=== PATIENT | female | born 1950 | race Caucasian/White ===

== ENCOUNTER → 2023-12-03 12:58 | Outpatient (REF) | payer MEDICARE, OTHER, SELFPAY | LOC: RAD 12:58 | PROVIDERS: ATTENDING PHYSICIAN Surgery; FAMILY PHYSICIAN Internal Medicine | DX: K57.20 Diverticulitis of large intestine with perforation and abscess without bleeding (principal) | CPT/HCPCS: 74176 ==

== ENCOUNTER → 2023-12-14 06:23 | Day surgery (SDC) | payer MEDICARE, OTHER, SELFPAY | LOC: GI 06:23 | PROVIDERS: ATTENDING PHYSICIAN Surgery; FAMILY PHYSICIAN Internal Medicine | DX: N82.3 Fistula of vagina to large intestine (principal); Z01.818 Encounter for other preprocedural examination; K64.4 Residual hemorrhoidal skin tags; K57.30 Diverticulosis of large intestine without perforation or abscess without bleeding; K56.699 Other intestinal obstruction unspecified as to partial versus complete obstruction | CPT/HCPCS: 45330 ==

== ENCOUNTER 2024-02-02 06:03 | Inpatient (IN) | payer MEDICARE, OTHER, SELFPAY ==
[2024-01-20 08:58] LABS: Hematocrit 43.1 % (37.0-47.0); Hemoglobin 14.8 g/dL (12.0-16.0); Mean Corp Hgb Conc. 34.3 g/dL (33.0-37.0); Mean Corpuscular Hgb 30.4 pg (27.0-31.0); Mean Corpuscular Volume 88.5 fL (81.0-99.0); Mean Platelet Volume 10.7 fL (7.4-10.4); Platelet Count 256 10^3/uL (130-400); Red Blood Cell Count 4.87 10^6/uL (4.20-5.40); Red Cell Dist. Width 14.2 % (11.5-14.5)
[2024-01-20 09:07] LABS: INR 0.98
[2024-01-20 09:08] LABS: APTT 29.6 Sec (23.4-35.0)
[2024-01-20 09:10] LABS: ALT (SGPT) 47 U/L (0-35); AST (SGOT) 35 U/L (14-36); Albumin 4.2 g/dl (3.5-5.0); Alkaline Phosphatase 59 U/L (38-126); Blood Urea Nitrogen 17 mg/dl (7-17); Calcium 9.1 mg/dl (8.4-10.2); Carbon Dioxide 27 mmol/L (22-30); Chloride 104 mmol/L (98-107); Glucose 90 mg/dl (70-99); Potassium 4.2 mmol/L (3.5-5.1); Sodium 136 mmol/L (135-145); Total Bilirubin 0.4 mg/dl (0.2-1.3); Total Protein 6.7 g/dl (6.3-8.2); eGFR > 60.00
[2024-01-20 09:49] LABS: Glycohemoglobin (HgbA1c) 6.1 % (4.0-5.6)
[2024-01-20 13:55] VITALS: BMI 22.6
[2024-02-02] VITALS (21 sets, daily range): BP systolic 20–133; BP diastolic 53–72; BMI 22.6
[2024-02-02] MEDS: NORMOSOL-R 1000 IV ×2 (06:30→16:35)
[2024-02-02] MEDS: ENTEREG 12 MG PO (06:34)
[2024-02-02] MEDS: HEPARIN 5000 UNITS SC (06:34)
[2024-02-02] MEDS: TYLENOL 1000 MG PO ×2 (06:34→20:37)
[2024-02-02] MEDS: LYRICA 150 MG PO (06:54)
--- NOTE | 2024-02-02 15:36 | W.IMMPOSTOP ---
Addendum entered and electronically signed by Connor Vaz MD 02/02/24 16:04:
updated spouse and sister regarding operative findings and status
Original Note:
Surgical Immed Post Op Note
-
Primary Surgeon: Connor Vaz MD
Assisting Surgeon: Mook Aponte MD, Esteban Laguerre MD, GABRIELLA Gupta
Pre-op Diagnosis: Diverticulitis, sigmoid stricture, possible colovesical fistula, possible colovaginal fistula
Post-op Diagnosis: Diverticulitis, sigmoid stricture, colovaginal fistula
Procedure Performed: Robotic sigmoidectomy, appendectomy, lysis of adhesions greater than 1 hr; takedown of colovaginal fistula, flexible sigmoidoscopy, mesenteric angiography with ICG, laparoscopic TAP block; cystoscopy with bilateral ureteral
stent placement by Dr. Laguerre; repair of colovaginal fistula by Dr. Aponte
Anesthesia Type: General
Specimen / Cultures: Appendix, sigmoid, colovaginal fistula tract
Estimated Blood Loss: 100 mL
Complications: None
Operative Findings: Dr. 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
cannulate both orifices of the left ureter; I gained access via a Veress needle at Mcclain's point; the abdomen was inspected and the bladder was very distended; the Weber catheter was manipulated and the bladder completely decompressed; the
remainder of the ports were placed under direct visualization; performed a Pfannenstiel cutdown 4 cm in length; confirmed location by finder needle and avoided the bladder; appendix was adherent to loop of sigmoid and performed an appendectomy to
free it up and allow the cecum to retract out of the pelvis; lysed adhesions from the sigmoid to the right pelvic sidewall and pelvis; identified a fistula to the matted sigmoid; it was difficult to ascertain if it was to the bladder or vagina;
performed vaginoscopy with the flexible sigmoidoscopy, no leak noted on filling the pelvis with saline; d/w with Dr. Laguerre and backfilled the bladder to distention, no leak of saline noted; after sigmoid was completely mobilized (ureters easily
identified on firefly and protected) transected distal to the rectosigmoid with 60mm robotic stapler with green load; d/w Dr. Aponte who performed vaginal exam and identifed vaginal fistula; he transected the fistula robotically and closed the
vaginal defect in 1 layer; I ligated the MADAI 5cm from it's take off and serially ligated mesentry to point just proximal to inflamed sigmoid; injected ICG and transected at point with clear perfusion; Luz Elena Salamanca handled the EEA stapler and we
performed an intracorporeal stapled EEA anastomosis; donuts intact, leak test negative, anastomosis intact on flex sigmoidoscopy; placed a souleymane drain via right lateral port site; performed laparoscopic TAP block; closed in the usual fashion
[2024-02-02 16:17] LABS: Glucose - Point of Care 148 mg/dl (70-99)
[2024-02-02] MEDS: TORADOL 15 MG IV (16:50)
--- NOTE | 2024-02-02 17:47 | OR.RPT ---
Operative Report
Operative Report
DATE OF OPERATION: 02/02/2024
SURGEON: Connor Vaz MD
PREOPERATIVE DIAGNOSIS: Chronic diverticulitis, sigmoid colon stricture, possible colovesical fistula, possible colovaginal fistula
POSTOPERATIVE DIAGNOSIS: Chronic diverticulitis, sigmoid colon stricture, colovaginal fistula
OPERATION: Robotic sigmoidectomy, appendectomy, lysis of adhesions greater than 1 hour, takedown of colovaginal fistula, flexible sigmoidoscopy, mesenteric angiography with ICG, laparoscopic TAP block; cystoscopy with bilateral ureteral stent
placement by Dr. Laguerre; repair of colovaginal fistula by Dr. Aponte
ASSISTANTS:
1. Mook Aponte MD
2. Esteban Laguerre MD
3. GABRIELLA Gupta
ANESTHESIA: General
ESTIMATED BLOOD LOSS: 100 mL
IVF: 4.1L
URINE OUTPUT: 500 mL
FINDINGS:
1. Densely adherent appendix to matted loops of sigmoid colon; performed appendectomy
2. Matted loops of sigmoid densely adherent to the pelvis, vagina and bladder; identified a fistula from the sigmoid colon to the vaginal cuff; I divided the fistula and Dr. Aponte performed a transection of the vaginal cuff including the vaginal
fistula and closed primarily
3. The bladder was fully distended after complete mobilization of the rectosigmoid, no bladder leak was identified
4. Performed sigmoidectomy with stapled EEA anastomosis, about 10cm from the anal verge; donuts intact x 2, negative leak test, anastomosis intact on flexible sigmoidoscopy
SPECIMENS:
1. Appendix
2. Colovaginal fistula tract
3. Sigmoid colon
DRAINS: 19 Polish placed through right lateral port into the pelvis anterior to the colorectal anastomosis and posterior to the fistula repair
COMPLICATIONS: None
INDICATIONS: The patient is a 73-year-old female who was referred to me by Dr. Tim for concern of colovaginal fistula. Initially, she presented to [facility] ED with abdominal pain and was found to have a pelvic abscess associated with
perforated diverticulitis. She was treated nonoperatively and followed with repeat CT scans. However, on one of her repeat scans, there was evidence of a fistula to the vagina as well as concern for colovesical fistula. She was seen
preoperatively by Dr. Aponte, who found a dimpling in the proximal vagina but no obvious fistula. I performed a flexible sigmoidoscopy and did not identify any fistula to the rectum. She had a known sigmoid stricture and the pediatric colonoscope
was not able to transverse the sigmoid colon. Due to the constellation of these issues causing significant symptoms, I recommended surgery. The operation was discussed with the patient and spouse in detail, including the risks, benefits and
alternatives. Risks described included, but not limited to, bleeding, infection, anastomotic leak, damage to nearby structures (i.e.- ureter, bowel, solid organs), incisional hernia, need for ostomy creation, conversion to open, recurrence of
diverticulitis, inability to identify or takedown fistulas and anesthetic risks. The patient understood. Due to the related bowel function associated with a low colorectal anastomosis, she made it clear that she would prefer a persistent
rectovaginal fistula as opposed to a low colorectal anastomosis, if in fact the fistula to the vagina is from the rectum as opposed to the sigmoid colon. I explained that I can leave the fistula to the vagina in situ if it is a rectovaginal
fistula. However, due to the complicated nature of performing a sigmoidectomy, the extent of rectal transection can vary and be hard to predict, and she still may require a lower colorectal anastomosis. She understood and agreed to proceed.
PROCEDURE IN DETAIL: The patient was taken to the operating room and placed on the operating table in supine position. Sequential compression devices were placed bilaterally. General anesthesia was then induced and the patient was intubated without
complication. The patient was then placed in lithotomy position with both arms tucked. The abdomen was then prepped and draped in a sterile fashion. A time-out was then performed verifying the correct patient, procedure, operative site,
positioning, and special equipment. Dr. Laguerre performed a cystoscopy, placed bilateral ureteral stents, injected each ureter with 2.5 mL of ICG and placed a Weber. He noted an area in the dome of the bladder that had some abnormality associated
with the mucosa, but was unlikely a fistula. Also, he noted the orifice to the left ureter was abnormally large, likely due to a duplicated left ureter. He was able to pass a guidewire up 1 orifice, but not a second. Dr. Laguerre and I reviewed the
last CT scan and confirmed that the patient had a complete duplication of the left ureter. The 2 ureters did travel together from the kidney to the bladder, no more than 1 cm apart from each other. Anesthesia placed an orogastric tube.
Preincision Ancef and Flagyl were administered. A marking pen was used to chloe out the midline.
An 8 mm incision at Mcclain's point was made with an 11 blade scalpel. A Veress needle was used to gain abdominal access. After 3 clicks, the insufflation was connected to the Veress needle and the opening pressure was noted to be less than 8 mmHg.
The abdomen was then insufflated to a pressure of 12 mmHg. An 8 mm robotic trocar was then inserted. The robotic camera was advanced and intra-abdominal placement was confirmed. The abdomen was examined. No injuries were noted from port entry or
from the Veress needle. The bladder was noted to be massively distended, possibly due to chronic distention with hypotonia. The remaining three 8mm robotic ports were placed under direct visualization in a diagonal fashion from Mcclain's point to
the right lower quadrant, as well as an 8mm assist port in the right lateral mid-abdomen, taking care to avoid injury to the right epigastric vessels. The left upper quadrant port was changed to the air seal port. A 4 cm Pfannenstiel incision was
created 2 fingerbreadths above the pubic symphysis. This was carried down to the anterior fascia with electrocautery and hemostasis was assured. The Veress needle was used as a finder needle and inserted at our proposed fascial incision under
laparoscopic visualization. The Veress needle entered the abdomen superior to the bladder, confirming this location as safe. The fascia was then incised to just beyond the length of the skin incision. The fascia was grasped with Liliana's and
elevated. The adhesions to the anterior fascia were taken down bluntly from the rectus abdominis muscle and the midline attachment was taken down with electrocautery. This was performed both superiorly and inferiorly to our incision. The rectus
was then split along the midline, first scoring the linea alba with electrocautery, then bluntly spitting with a Val clamp to reveal the peritoneum, which was grasped and elevated with Kellys. The peritoneum was then incised with Metzenbaum
scissors. The peritoneum was then incised cranially and caudally to the greatest extent that our incision would allow, taking care to avoid injury to the bladder. A small Thai with port cap was placed and a robotic 12 mm port was placed through
the port cap.
The patient was placed in 25 degrees Trendelenburg with 10 degrees left side up. The robot was docked from the patient's left side. Instruments used from left to right were the tip-up grasper, fenestrated bipolar, endoscopic camera and scissors.
The small bowel was retracted out of the pelvis and towards the right upper quadrant. Due to the massively distended bladder obscuring the pelvis, Dr. Laguerre was called to evaluate the Weber. He noted that there was in fact an obstruction. After
relieving the obstruction, the bladder completely retracted, revealing the pelvis. Multiple loops of sigmoid colon were noted to be matted on top of each other and the appendix was densely adherent to these matted loops. I began dissecting the
appendix out of the pelvis, however, this dissection was difficult due to the dense adhesions. I elected to proceed with an appendectomy. I dissected the base of the cecum and appendix from the lateral attachments and created a window in the
mesoappendix at the base of the appendix using robotic scissors and electrocautery. The right lower quadrant port was upsized to the robotic 12 mm port. A 60 mm robotic stapler with blue load was used to staple and divide the appendix at its base.
The staple line was hemostatic. The cecum was then able to be retracted out of the pelvis. There were adhesions from the matted sigmoid to the left pelvic brim, which I took down with Bovie electrocautery. I easily identified the ureters
bilaterally using firefly. Additionally, I was able to identify the duplicated left ureter without ICG, which was right next to the ureter with ICG. I then began mobilizing the loops of matted sigmoid colon and the proximal rectum. This was very
difficult due to the density of the interloop adhesions. I was able to mobilize the rectosigmoid posteriorly in the TME plane, taking care to avoid injury to the hypogastric nerves. I then dissected laterally, taking care to avoid injury to the
ureters. The anterior dissection was particularly difficult. I identified a fistula from the colon to what appeared to be the vagina. I dissected the fistula circumferentially and took this down with electrocautery. In order to identify whether
the fistula was to the bladder or the vagina, my partner, Dr. Roy, used the flexible sigmoidoscope to intubate and inflate the vagina with the pelvis full of saline. No bubbling was noted from the anterior fistular defect. I completed the
pelvic mobilization of the rectosigmoid circumferentially, taking care to avoid injury to the ureters. I selected a point at the proximal rectum just distal to the matted and diseased sigmoid colon. I ligated the mesorectum with the vessel sealer
circumferentially. Using the 60 mm robotic stapler with a green load, I stapled and divided the proximal rectum at this point, using 2 loads. I was now able to completely retract to the matted sigmoid out of the pelvis.
In order to identify the involved organ of the fistula, I called in Dr. Laguerre to evaluate the fistula defect. We backfilled the bladder to full distention while observing the defect and no leakage of saline was noted. Furthermore, under firefly,
there was no leakage of ICG through the defect. Therefore, Dr. Laguerre concluded that the fistula was unlikely to the bladder. I then called in Dr. Aponte who performed a vaginal exam and identified the fistular defect to be at the exact same
location of the dimpling he noted pre-operatively, confirming a fistula to the vagina. He elected to transect the vaginal fistula with the proximal vaginal cuff and close this primarily. While the OR staff prepared his instruments, I continued the
preparation of the proximal colon transection point. I circumferentially dissected out the MADAI and performed a medial to lateral mobilization of the mesentery of the sigmoid and descending colon towards the splenic flexure. I carried this to about
detention up the descending colon. It was clear that I would have plenty of reach without having to mobilize the splenic flexure. I divided the MADAI about 4 to 5 cm from its takeoff, ensuring that the left ureters were safe. The MADAI stump was
completely hemostatic. I then serially divided the mesentery up to the distal descending colon, which was just proximal to the diseased sigmoid. I asked anesthesia to inject ICG and my proposed transection point was well-perfused.
I elected to proceed with an intracorporeal end-to-end stapled anastomosis with EEA stapler. A colotomy in the devascularized segment of colon was created using the robotic scissors at a point distal to our proposed proximal transection point. The
anvil with a long Prolene suture attached at the tip was then carefully passed through the colotomy and advanced proximally up the descending colon, with the long Prolene remaining outside of the colon. The colotomy was then closed around the
Prolene stitch using a V-Loc running stitch. The robotic stapler with a blue load was then used to staple and divide the descending colon at our proposed transection point. The specimen was then placed in the right upper quadrant. The Prolene
attached to the anvil was grasped and pulled through the staple line after removing a few grant. I cleaned up the staple line from intervening mesentery and fat. The anvil was seated along the staple line nicely without intervening diverticula or
mesentery.
At this point, Dr. Aponte performed the repair of the colovaginal fistula, which will be dictated separately. The operative field was surveyed and hemostasis was ensured. Then, sizers were passed up the rectum to ensure adequate circumference and
length. GABRIELLA Barone, then passed the EEA stapler transanally to the distal staple line. The pin was extended and was connected with the anvil. After ensuring there was no twist to the mesentery and there was no tension, the EEA stapler was
then closed for 1 minute and then fired. Both donuts were intact. A leak test was performed by filling the pelvis with saline, occluding the proximal lumen and insufflating with the flexible sigmoidoscope. There was no evidence of leak from the
anastomosis. Endoscopically, the anastomosis was intact without evidence of bleeding. The colorectum was desufflated and the flexible sigmoidoscope removed. A 19 Polish Michael drain was passed through the right lateral robotic port and was laid in
the pelvic across the anastomosis anteriorly and posterior to the colovaginal fistula repair. This was secured to the skin with 2-0 Nylon.
The robotic instruments were removed and the robot was undocked. Using laparoscopic visualization, a TAP block was performed using a total of 30 mL of 0.25% Marcaine without epinephrine (with epinephrine was on backorder) mixed with dexamethasone
and injecting in the transverse abdominis plane bilaterally. The right lower quadrant 12mm port was closed with a Cipriano-Tesfaye and an 0-vicryl suture. The remaining ports were removed under direct visualization and no bleeding was noted. The
Pfannenstiel incision was then closed in layers. First, the peritoneum was closed with a running 0 Vicryl stitch. Then, the anterior fascia was closed using a #1 Stratafix suture. The incisions were then irrigated. Another 30 cc of 0.25% Marcaine
mixed with dexamethasone were injected around the incisions. The incisions were then closed with running subcuticular 4-0 Monocryl and dressed with Dermabond.
At this point, the procedure was complete. The patient was awoken and extubated without complication. The right stent was removed, and the left stent and Weber were left in place. All needle, sponge and instrument counts were reported as correct.
The patient tolerated the procedure well and was transferred to the recovery room in stable condition.
Of note, GABRIELLA Higuera, was necessary to perform the end-to-end stapled colorectal anastomosis and flexible sigmoidoscopy. I was present for the entire duration of the case.
DICTATED BY: Connor Vaz MD
[2024-02-02] MEDS: CRESTOR 10 MG PO (20:38)
[2024-02-02] MEDS: TORADOL IV (23:00)
[2024-02-02] MEDS: KLONOPIN PO (23:00)
[2024-02-02] MEDS: AMBIEN PO (23:00)
[2024-02-02] MEDS: LYRICA PO (23:01)
--- NOTE | 2024-02-02 23:15 | PTCARENOTE ---
TT house provider to notify of BP 86/54. Pt asymptomatic. Rechecked manually - 90/55. PERSONAL LINES ACCOUNT MANAGER said ok to hold lyrica, klonopin, and ambien since pt drowsy, no c/o pain. Will continue to monitor closely.
[2024-02-02] MEDS: CYMBALTA DELAYED RELEASE 60 MG PO (23:19)
[2024-02-02] MEDS: ABILIFY 15 MG PO (23:19)
[2024-02-03] VITALS (7 sets, daily range): BP systolic 91–116; BP diastolic 53–71; PULSE 71; BMI 23.8
[2024-02-03] MEDS: TYLENOL PO (01:02)
[2024-02-03] MEDS: TORADOL IV ×4 (05:10→21:44)
[2024-02-03] MEDS: TYLENOL 1000 MG PO ×4 (05:13→22:59)
[2024-02-03 05:43] LABS: % Basophils 0.2 % (0-2); % Immature Granulocytes 0.4 % (0-0.5); % Lymphocytes 26.9 % (20.5-51.1); % Monocytes 12.2 % (1.7-9.3); % Neutrophils 60.3 % (42.2-75.2); Absolute Lymphocytes 2.5 10^3/uL (1.2-3.4); Absolute Monocytes 1.2 10^3/uL (0.1-0.6); Absolute Neutrophils 5.7 10^3/uL (1.4-6.5); Hematocrit 34.7 % (37.0-47.0); Hemoglobin 11.8 g/dL (12.0-16.0); Mean Corpuscular Hgb 30.6 pg (27.0-31.0); Mean Corpuscular Volume 89.9 fL (81.0-99.0); Mean Platelet Volume 10.1 fL (7.4-10.4); Nucleated Red Blood Cells % 0 %; Platelet Count 205 10^3/uL (130-400); Red Blood Cell Count 3.86 10^6/uL (4.20-5.40); Red Cell Dist. Width 14.6 % (11.5-14.5); White Blood Cell Count 9.4 10^3/uL (4.8-10.8)
[2024-02-03 06:12] LABS: Blood Urea Nitrogen 8 mg/dl (7-17); Calcium 7.2 mg/dl (8.4-10.2); Carbon Dioxide 26 mmol/L (22-30); Chloride 105 mmol/L (98-107); Estimated Creatinine Clearance 71 ml/min; Glucose 111 mg/dl (70-99); Magnesium 2.8 mg/dl (1.6-2.3); Potassium 4.1 mmol/L (3.5-5.1); Sodium 133 mmol/L (135-145); eGFR > 60.00
[2024-02-03 06:57] LABS: Hepatitis C Antibody Negative (Negative)
[2024-02-03] MEDS: ENTEREG 12 MG PO ×2 (07:58→20:15)
[2024-02-03] MEDS: PEPCID 20 MG PO (07:58)
--- NOTE | 2024-02-03 08:30 | W.PN.GYN ---
Today's Communication / Plan
-
monitory vaginal spotting
Physician Note
-
Assessment and Plan:
73 yo woman POD 1 s/p robotic repair of colovaginal fistula and excision of vaginal fistula tract with robotic repair.
1. Vaginal repair
-monitor vaginal bleeding
-plan to start estrace 1 gram twice weekly at 2 weeks postop.
2. Postoperative Care
-per colorectal service
Subjecitve:
-minimal vaginal spotting, pad in place
Objective:
Intake and Output
02/01/24 02/02/24 02/03/24 02/04/24
06:59 06:59 06:59 06:59
Intake Total 1880 / 1880
Output Total 915 / 915
Balance 965 / 965
Intake:
Oral fluids 480 / 480
IV fluids (Total) 1400 / 1400
Normosol 800 / 800
Output:
Drain Output (Total) 140 / 140
Right Abdomen Fadi-Lopez 140 / 140
Urine, Weber 775 / 775
Vital Signs
Temp Pulse Resp BP Pulse Ox
97.6 F 71 18 93/54 99
02/03/24 07:15 02/03/24 07:15 02/03/24 07:15 02/03/24 07:15 02/03/24 07:15
Lab Results
02/03/24 05:17
02/03/24 05:17
Exam
: no packing, minimal spotting
--- NOTE | 2024-02-03 10:55 | W.PN.CRS1 ---
Today's Communication / Plan
-
continue regular diet
d/c ivfs
d/c lim
stent removed
lovenox
Assessment/Plan
-
POD#1 Robotic sigmoidectomy, appendectomy, lysis of adhesions greater than 1 hr; takedown of colovaginal fistula, flexible sigmoidoscopy, mesenteric angiography with ICG, laparoscopic TAP block; cystoscopy with bilateral ureteral stent placement by
Dr. Laguerre; repair of colovaginal fistula by Dr. Aponte
1. Hypotensive, but this is her baseline. Otherwise, vitals wnl.
2. OOB as tolerated. PT ordered.
3. Stent removed at bedside. D/C lim.
4. D/C IVFs.
5. Continue regular diet. Encouraged patient to go slow.
6. Pain control: Tylenol/Toradol standing. Oxycodone/Dilaudid for breakthrough.
7. Start on Lovenox for DVT prophylaxis. SEDS/TEDS in place.
8. OR pathology pending.
Subjective Data
Procedure
02/01/2024- Robotic sigmoidectomy, appendectomy, lysis of adhesions greater than 1 hr; takedown of colovaginal fistula, flexible sigmoidoscopy, mesenteric angiography with ICG, laparoscopic TAP block; cystoscopy with bilateral ureteral stent placement
by Dr. Laguerre; repair of colovaginal fistula by Dr. Aponte
Subjective Data
Date of Service: February 03, 2024
Patient states she has a little bit of pain in her lower incision area. She denies nausea or vomiting. She feels a little bloated. She does not have any bowel function yet. She walked around earlier this morning.
Objective Data
-
Vital Signs
Temp Pulse Resp BP Pulse Ox
97.6 F 71 18 93/54 99
02/03/24 07:15 02/03/24 07:15 02/03/24 07:15 02/03/24 07:15 02/03/24 08:00
Intake & Output
02/02/24 02/03/24 02/04/24
06:59 06:59 06:59
Intake Total 1880 / 1880
Output Total 915 / 915
Balance 965 / 965
Intake:
Oral fluids 480 / 480
IV fluids (Total) 1400 / 1400
Normosol 800 / 800
Output:
Drain Output (Total) 140 / 140
Right Abdomen Fadi-Lopez 140 / 140
Urine, Lim 775 / 775
Lab Results
02/03/24 05:17
02/03/24 05:17
Physical Exam
-
General: No Acute Distress and AOx3
Abdomen: Soft, Distended (mild) and Tender (lower incision area - mild)
Skin: Warm and Dry
Incision: Clear, Dry, Intact
--- NOTE | 2024-02-03 15:08 | CM ---
Alert awake oriented patient who lives with her Tj in a 2 story home with 2 step to enter and 16 steps to bed room. She is independent in driving and all activities of daily living.Offered VN she declined.Pt is postop.
[facility] /[facility] h[facility]
Pharmacy [place] [id number] Chad Tatum
PLAN Home no needs
[2024-02-03] MEDS: CRESTOR 10 MG PO (17:01)
[2024-02-03] MEDS: LOVENOX 40 MG SC (17:01)
[2024-02-03] MEDS: AMBIEN 10 MG PO (21:43)
[2024-02-03] MEDS: LYRICA 300 MG PO (21:44)
[2024-02-03] MEDS: KLONOPIN 2 MG PO (21:44)
[2024-02-03] MEDS: ABILIFY 15 MG PO (21:44)
[2024-02-03] MEDS: CYMBALTA DELAYED RELEASE 60 MG PO (21:44)
[2024-02-04 02:51] VITALS: BP 99/60
[2024-02-04] MEDS: TORADOL IV ×4 (03:43→21:44)
[2024-02-04] MEDS: TYLENOL 1000 MG PO ×3 (05:03→23:21)
[2024-02-04 05:31] VITALS: BMI 23.2
[2024-02-04 07:57] VITALS: BP 111/65
[2024-02-04] MEDS: PEPCID 20 MG PO (08:30)
[2024-02-04] MEDS: ENTEREG 12 MG PO ×2 (08:30→20:40)
--- NOTE | 2024-02-04 08:49 | W.PN.CRS1 ---
Addendum entered and electronically signed by Connor Vaz MD 02/04/24 12:59:
For chart clarification purposes, drop in Hb is likely hemodilution only; Hb of 14 was likely falsely elevated
Original Note:
Today's Communication / Plan
-
Cont regular; back down if N/V
Assessment/Plan
-
73-year-old female with PMH of RA (Cimzia and leflunomide on hold per rheumatology for elective surgery), depression/anxiety, HLD, recurrent UTIs who presented for elective surgery for diverticular sigmoid stricture associated with colovaginal
fistula
POD 2 robotic sigmoidectomy, appendectomy, lysis of adhesions, takedown and repair of colovaginal fistula, cystoscopy with bilateral ureteral stents, tap block
AFVSS, no labs today, UOP 2.5L
�Continue regular diet; encouraged to go slow
-More distended, but passing flatus and no nausea; if N/V, back diet down
- Monitor bloody urine s/p stent removal
� Cont DVT PPx with Lovenox
� Pain control with Tylenol and Toradol, oxycodone as needed, IV Dilaudid for breakthrough
� Continue SAMEERA to bulb suction, likely will remove on day of discharge
� Appreciate urogyn
� Continue home meds
Subjective Data
Procedure
02/01/2024- Robotic sigmoidectomy, appendectomy, lysis of adhesions greater than 1 hr; takedown of colovaginal fistula, flexible sigmoidoscopy, mesenteric angiography with ICG, laparoscopic TAP block; cystoscopy with bilateral ureteral stent placement
by Dr. Laguerre; repair of colovaginal fistula by Dr. Aponte
Subjective Data
Date of Service: February 04, 2024
No overnight events.
Pain controlled.
Denies nausea/vomiting. Tolerating diet.
+flatus -BMs +voiding (having some blood mixed in with the urine)
Pt is OOB.
Objective Data
-
Vital Signs
Temp Pulse Resp BP Pulse Ox
98.5 F 90 20 111/65 95
02/04/24 07:57 02/04/24 07:57 02/04/24 07:57 02/04/24 07:57 02/04/24 07:57
Intake & Output
02/03/24 02/04/24 02/05/24
06:59 06:59 06:59
Intake Total 1880 / 1880 3120 / 3120
Output Total 915 / 915 2890 / 2890
Balance 965 / 965 230 / 230
Intake:
Oral fluids 480 / 480 3120 / 3120
IV fluids (Total) 1400 / 1400
Normosol 800 / 800
Output:
Drain Output (Total) 140 / 140 315 / 315
Right Abdomen Fadi-Lopez 140 / 140 315 / 315
Urine, Weber 775 / 775
Urine, Voided 2575 / 2575
Other:
Number of approximated MODERATE 2
amounts of urine
Lab Results
02/03/24 05:17
02/03/24 05:17
Physical Exam
-
General: No Acute Distress and AOx3
HEENT: Grossly Normal
Abdomen: Soft, Distended (Mildly to moderately distended, slightly worse than yesterday), Tender (Appropriately tender near incisions), No Guarding and No Rebound
Skin: Warm and Dry
Wound: No Signs of Infection, Dressing in Place (Dermabond) and No Skin Erythema
--- NOTE | 2024-02-04 10:06 | PN.CDI ---
CDI
- -
CDI:
Physician Documentation Request
Admit Date: 02/02/24 06:03
Dear Doctor Milind,
Patient post-op day 2 POD 2 robotic sigmoidectomy, appendectomy, lysis of adhesions, takedown and repair of colovaginal fistula, cystoscopy with bilateral ureteral stents.
02/01 Operative Note: 'ESTIMATED BLOOD LOSS: 100 mL, IVF: 4.1L'
Laboratory Tests
01/20/24 02/03/24
08:12 05:17
Hgb 14.8 11.8 L
Hct 43.1 34.7 L
Based on the above, could you clarify in the progress notes, the appropriate diagnosis, if significant, that supports the above abnormalities and additional evaluation, monitoring and/or treatment rendered:
Acute anemia multifactorial blood loss and hemodilution
Acute blood loss anemia
Hemodilution only
Other
Use of terms such as suspected, likely, concern for, or probable (associated with a specific diagnosis that is being evaluated, monitored, or treated as if it exists) are acceptable and can be coded in the inpatient setting, when documented at the
time of discharge.
Thank you,
Nisha Lemus RN, BSN
CDI Specialist
Available via [facility] text
Please use your independent medical judgment in providing your response.
[2024-02-04 11:30] VITALS: BP 123/64
[2024-02-04] MEDS: TYLENOL PO (13:16)
--- NOTE | 2024-02-04 13:56 | CM ---
CM following re: discharge planning.
Reviewed pt's chart, met with pt and pt's at bedside.
pt stated she is independent with mobility, will not need any after care VN services upon the discharge. Pt stated her will transport home at discharge.
IMM reviewed, placed in chart, pt has a copy.
D/C plan: home with no needs. to transport.
CM will follow with discharge plan updates as needed.
[2024-02-04 15:25] VITALS: BP 134/73
[2024-02-04] MEDS: LOVENOX 40 MG SC (17:40)
[2024-02-04] MEDS: CRESTOR 10 MG PO (17:41)
[2024-02-04 19:40] VITALS: BP 90/52
[2024-02-04] MEDS: LYRICA 300 MG PO (21:43)
[2024-02-04] MEDS: AMBIEN 10 MG PO (21:43)
[2024-02-04] MEDS: CYMBALTA DELAYED RELEASE 60 MG PO (21:44)
[2024-02-04] MEDS: KLONOPIN 2 MG PO (21:44)
[2024-02-04] MEDS: ABILIFY 15 MG PO (21:44)
[2024-02-04 23:45] VITALS: BP 98/60
[2024-02-05] MEDS: TORADOL IV ×4 (03:41→22:04)
[2024-02-05 03:45] VITALS: BP 100/67
[2024-02-05 04:43] LABS: % Basophils 0.2 % (0-2); % Immature Granulocytes 0.6 % (0-0.5); % Lymphocytes 17.7 % (20.5-51.1); % Monocytes 4.3 % (1.7-9.3); % Neutrophils 76.2 % (42.2-75.2); Absolute Eosinophils 0.2 10^3/uL (0-0.7); Absolute Immature Granulocytes 0.1 10^3/uL (0-0.05); Absolute Lymphocytes 3.1 10^3/uL (1.2-3.4); Absolute Monocytes 0.8 10^3/uL (0.1-0.6); Absolute Neutrophils 13.2 10^3/uL (1.4-6.5); Hemoglobin 11.6 g/dL (12.0-16.0); Mean Corp Hgb Conc. 35.2 g/dL (33.0-37.0); Mean Corpuscular Hgb 30.9 pg (27.0-31.0); Mean Platelet Volume 10.3 fL (7.4-10.4); Nucleated Red Blood Cells % 0 %; Platelet Count 207 10^3/uL (130-400); Red Blood Cell Count 3.75 10^6/uL (4.20-5.40); Red Cell Dist. Width 14.4 % (11.5-14.5); White Blood Cell Count 17.3 10^3/uL (4.8-10.8)
[2024-02-05] MEDS: TYLENOL 1000 MG PO ×3 (05:07→17:33)
[2024-02-05 05:09] LABS: Blood Urea Nitrogen 7 mg/dl (7-17); Calcium 8.2 mg/dl (8.4-10.2); Carbon Dioxide 27 mmol/L (22-30); Chloride 105 mmol/L (98-107); Estimated Creatinine Clearance 71 ml/min; Glucose 98 mg/dl (70-99); Potassium 3.5 mmol/L (3.5-5.1); Sodium 134 mmol/L (135-145); eGFR > 60.00
[2024-02-05 05:16] VITALS: BMI 23.1
[2024-02-05 07:25] VITALS: BP 142/82
[2024-02-05 08:26] VITALS: BP 142/82
[2024-02-05] MEDS: ENTEREG 12 MG PO ×2 (08:33→19:56)
[2024-02-05] MEDS: PEPCID 20 MG PO (08:33)
[2024-02-05 11:29] VITALS: BP 100/59
--- NOTE | 2024-02-05 12:10 | W.PN.CRS1 ---
Today's Communication / Plan
-
continue diet
repeat cbc in AM
Assessment/Plan
-
73-year-old female with PMH of RA (Cimzia and leflunomide on hold per rheumatology for elective surgery), depression/anxiety, HLD, recurrent UTIs who presented for elective surgery for diverticular sigmoid stricture associated with colovaginal
fistula
POD 3 robotic sigmoidectomy, appendectomy, lysis of adhesions, takedown and repair of colovaginal fistula, cystoscopy with bilateral ureteral stents, tap block
AFVSS, WBC 17.3
�Continue regular diet; encouraged to go slow
-More distended, but passing flatus and no nausea; if N/V, back diet down
- Repeat CBC in AM
� Cont DVT PPx with Lovenox
� Pain control with Tylenol and Toradol, oxycodone as needed, IV Dilaudid for breakthrough
� Continue SAMEERA to bulb suction, likely will remove on day of discharge
� Appreciate urogyn
� Continue home meds
Subjective Data
Procedure
02/01/2024- Robotic sigmoidectomy, appendectomy, lysis of adhesions greater than 1 hr; takedown of colovaginal fistula, flexible sigmoidoscopy, mesenteric angiography with ICG, laparoscopic TAP block; cystoscopy with bilateral ureteral stent placement
by Dr. Laguerre; repair of colovaginal fistula by Dr. Aponte
Subjective Data
Date of Service: February 05, 2024
Patient states her pain is better. She denies nausea or vomiting. She is eating. She has flatus. She is less bloated.
Objective Data
-
Vital Signs
Temp Pulse Resp BP Pulse Ox
97.6 F 78 16 100/59 93
02/05/24 11:29 02/05/24 11:29 02/05/24 11:29 02/05/24 11:29 02/05/24 11:29
Intake & Output
0402/05/24 02/06/24
06:59 06:59 06:59
Intake Total 3120 / 3120 1919
Output Total 2890 / 2890 140 / 140
Balance 230 / 230 1779 / 1779
Intake:
Oral fluids 3120 / 3120 1919
Output:
Drain Output (Total) 315 / 315 140 / 140
Right Abdomen Fadi-Lopez 315 / 315 140 / 140
Urine, Voided 2575 / 2575
Other:
Number of approximated MODERATE 2 4
amounts of urine
Number of approximated LARGE 1
amounts of urine
Lab Results
02/05/24 04:11
02/05/24 04:11
Physical Exam
-
General: No Acute Distress and AOx3
Abdomen: Soft, Non Distended and Non Tender
Skin: Warm and Dry
Incision: Clear, Dry, Intact
[2024-02-05 15:15] VITALS: BP 95/58
[2024-02-05] MEDS: CRESTOR 10 MG PO (17:33)
[2024-02-05] MEDS: LOVENOX 40 MG SC (17:33)
[2024-02-05] MEDS: AMBIEN 10 MG PO (22:02)
[2024-02-05] MEDS: ABILIFY 15 MG PO (22:03)
[2024-02-05] MEDS: KLONOPIN 2 MG PO (22:03)
[2024-02-05] MEDS: LYRICA 300 MG PO (22:03)
[2024-02-05] MEDS: CYMBALTA DELAYED RELEASE 60 MG PO (22:03)
[2024-02-05 23:00] VITALS: BP 98/55
[2024-02-05] MEDS: TYLENOL PO (23:10)
[2024-02-06] MEDS: TORADOL IV ×4 (03:44→21:07)
[2024-02-06] MEDS: TYLENOL 1000 MG PO ×4 (05:40→23:16)
[2024-02-06 06:00] VITALS: BMI 22.8
[2024-02-06 07:05] VITALS: BP 97/63
[2024-02-06 07:10] LABS: % Basophils 0.2 % (0-2); % Eosinophils 0.9 % (0-6); % Immature Granulocytes 0.5 % (0-0.5); % Lymphocytes 19.9 % (20.5-51.1); % Monocytes 3.7 % (1.7-9.3); % Neutrophils 74.8 % (42.2-75.2); Absolute Eosinophils 0.1 10^3/uL (0-0.7); Absolute Immature Granulocytes 0.1 10^3/uL (0-0.05); Absolute Lymphocytes 2.7 10^3/uL (1.2-3.4); Absolute Monocytes 0.5 10^3/uL (0.1-0.6); Absolute Neutrophils 10.2 10^3/uL (1.4-6.5); Hematocrit 33.1 % (37.0-47.0); Hemoglobin 11.5 g/dL (12.0-16.0); Mean Corp Hgb Conc. 34.7 g/dL (33.0-37.0); Mean Corpuscular Volume 89.2 fL (81.0-99.0); Mean Platelet Volume 10.7 fL (7.4-10.4); Nucleated Red Blood Cells % 0 %; Platelet Count 248 10^3/uL (130-400); Red Blood Cell Count 3.71 10^6/uL (4.20-5.40); Red Cell Dist. Width 14.5 % (11.5-14.5); White Blood Cell Count 13.6 10^3/uL (4.8-10.8)
[2024-02-06] MEDS: ENTEREG 12 MG PO (08:17)
[2024-02-06] MEDS: PEPCID 20 MG PO (08:17)
--- NOTE | 2024-02-06 09:40 | W.PN.GS2 ---
Addendum entered and electronically signed by Billy Ochoa MD 02/06/24 10:11:
Patient seen and examined with nurse practitioner. Agree with documented progress note.
Overall patient feeling well, tolerating diet.
Her primary concern is that she is passing flatus but has not had her postoperative bowel movement yet. She does feel as though she is getting a bit for and awaiting for urge for BM. Reports history of chronic constipation/IBS for which she is
typically on a bowel regiment.
AF VSS
ABD: Softly/slightly distended but not significantly so. Minimal incisional tenderness. Incisions with glue dressings.
SAMEERA with serosanguineous fluid
A/P: POD #4 status post RAL sigmoid, GAEL, takedown of colovaginal fistula
Overall doing well.
Continue diet, advised patient that I would hold on any oral bowel regiment at this point as she is only postoperative day 4
Continue ambulation
Multimodal pain options
Routine postoperative supportive care
Original Note:
Today's Communication / Plan
-
c/w diet
OOB/Ambulate
Assessment / Plan
-
73 yo female who presented for surgical management of diverticular disease with sigmoid stricture and colovaginal fistula
POD #4 robotic sigmoidectomy, appi, GAEL and takedown of colovaginal fistula with vaginal repair with urogynecology
AFVSS (bp soft low)
+flatus/no n/v. No BM as of yet with mild distention
voiding without difficulty (stents/lim out)
Leukocytosis trending down. H/H stable
Mild hyponatremia with fluid shifts, improved.
--Continue current diet
--Continue Entereg
--Continue SAMEERA until D/C
--Scheduled Tylenol/Toradol, prn oxycodone, Dilaudid
--continued on home meds
--Urogyn with plan to start estrace 1 gram twice weekly at 2 weeks postop.
--Lovenox 40mg sq for VTE ppx, SCD's while in bed
Subjective Data
-
Date of Service: February 06, 2024
Patient seen and examined at bedside with Dr. Ochoa. Denies n/v. Passing flatus but no BM as of yet. C/O fullness with meals, no appetite yet. Abdominal discomfort minimal, but with some bloating.
Objective Data
-
Intake and Output
02/05/24 02/06/24 02/07/24
06:59 06:59 06:59
Intake Total 0 / 1920 1680 / 1680
Output Total 140 / 140 145 / 145
Balance 1780 / 1780 1535 / 1535
Intake:
Oral fluids 19190 1680 / 1680
Output:
Drain Output (Total) 140 / 140 145 / 145
Right Abdomen Fadi-Lopez 140 / 140 145 / 145
Other:
Number of approximated MODERATE 4 3
amounts of urine
Number of approximated LARGE 1
amounts of urine
Vital Signs
Temp Pulse Resp BP Pulse Ox
98.8 F 88 18 97/63 99
02/06/24 07:05 02/06/24 07:05 02/06/24 07:05 02/06/24 07:05 02/06/24 07:05
Lab Results
02/06/24 05:57
02/05/24 04:11
Calcium 8.2 mg/dl (8.4-10.2) L 02/05/24 04:11
Magnesium 2.8 mg/dl (1.6-2.3) H 02/03/24 05:17
Total Bilirubin 0.4 mg/dl (0.2-1.3) 01/20/24 08:12
AST 35 U/L (14-36) 01/20/24 08:12
ALT 47 U/L (0-35) H 01/20/24 08:12
Alkaline Phosphatase 59 U/L (38-126) 01/20/24 08:12
Total Protein 6.7 g/dl (6.3-8.2) 01/20/24 08:12
Albumin 4.2 g/dl (3.5-5.0) 01/20/24 08:12
Physical Exam
-
NAD
ABD soft, mild distention, mild incisional tenderness
Incisions well approximated, intact glue, no erythema, SAMEERA with SSF
--- NOTE | 2024-02-06 15:30 | PTCARENOTE ---
Pt slightly hypotensive with BP 88/51. Pt asymptomatic. GABRIELLA Moore notified. No new orders at this time. Will continue to monitor patient.
[2024-02-06 15:36] VITALS: BP 88/51
[2024-02-06 16:32] VITALS: BP 116/66
[2024-02-06] MEDS: LOVENOX 40 MG SC (17:08)
[2024-02-06] MEDS: CRESTOR 10 MG PO (17:08)
[2024-02-06] MEDS: ENTEREG PO (20:57)
[2024-02-06] MEDS: ABILIFY 15 MG PO (21:06)
[2024-02-06] MEDS: CYMBALTA DELAYED RELEASE 60 MG PO (21:06)
[2024-02-06] MEDS: KLONOPIN 2 MG PO (21:06)
[2024-02-06] MEDS: AMBIEN 10 MG PO (21:06)
[2024-02-06] MEDS: LYRICA 300 MG PO (21:07)
[2024-02-06 23:00] VITALS: BP 90/57
[2024-02-07] MEDS: TORADOL IV ×2 (04:18→09:22)
[2024-02-07 06:00] VITALS: BMI 22.7
[2024-02-07 07:04] VITALS: BP 110/67
[2024-02-07] MEDS: TYLENOL PO ×2 (07:23→11:18)
[2024-02-07] MEDS: PEPCID 20 MG PO (09:13)
--- NOTE | 2024-02-07 10:46 | W.PN.GS2 ---
Addendum entered and electronically signed by Billy Ochoa MD 02/07/24 13:24:
Patient seen and examined with nurse practitioner. Agree with documented progress note.
Patient feeling well, ambulating halls regularly, multiple bowel movements and passing flatus. Tolerating low residue diet. Requesting discharge home.
AFVSS
ABD: Soft, nondistended, minimal tenderness at incision sites, incision sites with glue dressing. No erythema.
SAMEERA with light serosanguineous fluid
A/P: POD #5 RAL sigmoid, appendectomy, GAEL and repair of colovaginal fistula
SAMEERA removed
DC home
Outpatient follow-up with Dr. Vaz and uro-[facility]
Original Note:
Today's Communication / Plan
-
dispo planning
Assessment / Plan
-
73 yo female who presented for surgical management of diverticular disease with sigmoid stricture and colovaginal fistula
POD #5 robotic sigmoidectomy, appi, GAEL and takedown of colovaginal fistula with vaginal repair with urogynecology
AFVSS (bp soft low)
+BMs/tolerating diet
--Continue current diet
--SAMEERA removed at bedside
--only taking Tylenol
--continued on home meds
--Urogyn with plan to start estrace 1 gram twice weekly at 2 weeks postop
Discharge to home
Subjective Data
-
Date of Service: February 07, 2024
Patient seen and examined at bedside with Dr. Ochoa. Feeling well today. Passed several BM's with flatus. Tolerating diet. Denies n/v. Pain is very minimal.
Objective Data
-
Intake and Output
02/06/24 02/07/24 02/08/24
06:59 06:59 06:59
Intake Total 1680 / 1680 1440 / 1440 480 / 480
Output Total 145 / 145 55 / 55 35 / 35
Balance 1535 / 1535 1385 / 1385 445 / 445
Intake:
Oral fluids 1680 / 1680 1440 / 1440 480 / 480
Output:
Drain Output (Total) 145 / 145 35 / 35
Right Abdomen Fadi-Lopez 145 / 145 35 / 35
Other:
Number of approximated MODERATE 3 3 3
amounts of urine
Number of approximated LARGE 1
amounts of urine
Vital Signs
Temp Pulse Resp BP Pulse Ox
98.6 F 78 16 110/67 94
02/07/24 07:04 02/07/24 07:04 02/07/24 07:04 02/07/24 07:04 02/07/24 07:04
Lab Results
02/06/24 05:57
02/05/24 04:11
Calcium 8.2 mg/dl (8.4-10.2) L 02/05/24 04:11
Magnesium 2.8 mg/dl (1.6-2.3) H 02/03/24 05:17
Total Bilirubin 0.4 mg/dl (0.2-1.3) 01/20/24 08:12
AST 35 U/L (14-36) 01/20/24 08:12
ALT 47 U/L (0-35) H 01/20/24 08:12
Alkaline Phosphatase 59 U/L (38-126) 01/20/24 08:12
Total Protein 6.7 g/dl (6.3-8.2) 01/20/24 08:12
Albumin 4.2 g/dl (3.5-5.0) 01/20/24 08:12
Physical Exam
-
NAD
ABD soft, mild distention, mild incisional tenderness
Incisions well approximated, intact glue, no erythema, SAMEERA with SSF (removed)
--- NOTE | 2024-02-07 10:49 | W.DCSUMMARY ---
Addendum entered and electronically signed by CHIRAG Joya 02/07/24 13:29:
.
Original Note:
Discharge Summary
Discharge Data
Date of Admission: 02/02/24
Date of Discharge: 02/07/24
-
Pending Results: No
Hospital Course
Ms. Church is a 73 yo female with a h/o complicated diverticular disease who presented for scheduled operative management with robotic sigmoidectomy, appendectomy, lysis of adhesions and take down of colovaginal fistula by colorectal surgery
with vaginal repair by urogynecology. Diet was able to be slowly advanced and well tolerated with good bowel recovery post operatively. SAMEERA drain was removed prior to discharge. Pain was minimal upon discharge date and patient declined narcotic
prescription.
Discharge Plan
-
Patient Disposition: Home (Routine Discharge)
Discharge Diagnosis/Procedures: Robotic sigmoidectomy, appendectomy, lysis of adhesions greater than 1 hr; takedown of colovaginal fistula, flexible sigmoidoscopy, mesenteric angiography with ICG, laparoscopic TAP block; cystoscopy with bilateral
ureteral stent placement by Dr. Laguerre; repair of colovaginal fistula by Dr. Aponte
Condition: Good
Diet: Low Fiber
Activity: No strenuous activity
Additional Activity: No lifting over 10lbs (gallon of milk)
Driving Restrictions: No driving while using narcotics.
Bathing Restrictions: OK to Shower
Wound Care: Allow glue to naturally fall off. Do not pick at incisions. Okay to shower.
Activity Restrictions/Additional Instructions:
Call your surgeon if you develop fevers >100.5, nausea with vomiting or worsening abdominal pain.
Referrals:
Chad Tatum MD [Family Provider] -
Connor Vaz MD [Active] - in two weeks
Mook Aponte MD [Active] - in one to two weeks
Prescriptions:
Continued
aripiprazole 15 MG tablet
15 mg PO HS
duloxetine 60 MG capsule,delayed release(DR/EC)
60 mg PO HS
eszopiclone 3 MG tablet
3 mg PO HS
pregabalin 300 mg capsule
300 mg PO HS
Patient Comments:
09/16/23 filled on 08/24/23 #90
clonazepam 1 mg Tablet
2 mg PO HS
Patient Comments:
09/16/23 filled on 08/21/23 #180
therapeutic multivitamin Tablet
1 tab PO DAILY
acetaminophen [Tylenol Extra Strength] 500 mg Tablet
1,000 mg PO DAILYPRN PRN (Reason: mild pain)
calcium carbonate-vitamin D3 600 mg-5 mcg (200 unit) Tablet
1 tab PO DAILY
rosuvastatin 10 mg Tablet
10 mg PO QPM
Probiotic
1 tab PO DAILY
famotidine
1 dose PO DAILY
Changed
polyethylene glycol 3350 [HealthyLax] 17 gram Powder In Packet
17 g PO PRN PRN (Reason: constipation) Qty: 30 0RF
Discontinued
Sutab 1.479-0.188- 0.225 gram Tablet
0 tab PO DIRECTED
Discharge Orders:
Discharge Patient (As Directed); Ordered 02/07/24
Ordered By: Mariam Moore
Discharge Date and Time
Discharge Date/Time: 02/07/24 11:26
Print Language: FILIPINO
--- NOTE | 2024-02-07 10:58 | CM ---
Plan for dc home today. CM met with pt at bedside. Confirmed SAMEERA drain d/c'd. No skilled discharge needs identified. IMM signed, copy on chart and provided to pt. to transport home today and is currently in the hospital cafeteria.
== END 2024-02-07 11:26 | disposition home or self-care (01) | DRG 330 ==
LOC: 2 SOUTH 06:03
PROVIDERS: Obstetrics & Gynecology; Physician Assistant; Urology; ADMITTING PHYSICIAN Surgery; FAMILY PHYSICIAN Internal Medicine
PROC: 0DTN4ZZ Resection of Sigmoid Colon, Percutaneous Endoscopic Approach (ICD-10-PCS; 2024-02-02)
PROC: 0DNN4ZZ Release Sigmoid Colon, Percutaneous Endoscopic Approach (ICD-10-PCS; 2024-02-02)
PROC: 0DTJ4ZZ Resection of Appendix, Percutaneous Endoscopic Approach (ICD-10-PCS; 2024-02-02)
PROC: 0UQG7ZZ Repair Vagina, Via Natural or Artificial Opening (ICD-10-PCS; 2024-02-02)
PROC: 8E0W4CZ Robotic Assisted Procedure of Trunk Region, Percutaneous Endoscopic Approach (ICD-10-PCS; 2024-02-02)
PROC: 0T788DZ Dilation of Bilateral Ureters with Intraluminal Device, Via Natural or Artificial Opening Endoscopic (ICD-10-PCS; 2024-02-02)
PROC: 0UBG7ZZ Excision of Vagina, Via Natural or Artificial Opening (ICD-10-PCS; 2024-02-02)
PROC: 3E0T3BZ Introduction of Anesthetic Agent into Peripheral Nerves and Plexi, Percutaneous Approach (ICD-10-PCS; 2024-02-02)
PROC: 3E0T33Z Introduction of Anti-inflammatory into Peripheral Nerves and Plexi, Percutaneous Approach (ICD-10-PCS; 2024-02-02)
PROC: 3E0K8KZ Introduction of Other Diagnostic Substance into Genitourinary Tract, Via Natural or Artificial Opening Endoscopic (ICD-10-PCS; 2024-02-02)
PROC: 0DJD8ZZ Inspection of Lower Intestinal Tract, Via Natural or Artificial Opening Endoscopic (ICD-10-PCS; 2024-02-02)
DX: K57.20 Diverticulitis of large intestine with perforation and abscess without bleeding (principal); K56.699 Other intestinal obstruction unspecified as to partial versus complete obstruction; N82.8 Other female genital tract fistulae; N82.3 Fistula of vagina to large intestine; R51.9 Headache, unspecified; K64.8 Other hemorrhoids; K21.9 Gastro-esophageal reflux disease without esophagitis; E78.5 Hyperlipidemia, unspecified; M79.7 Fibromyalgia; F41.9 Anxiety disorder, unspecified; K66.0 Peritoneal adhesions (postprocedural) (postinfection); N73.6 Female pelvic peritoneal adhesions (postinfective); F32.A Depression, unspecified; M06.9 Rheumatoid arthritis, unspecified; Z82.49 Family history of ischemic heart disease and other diseases of the circulatory system; Z83.3 Family history of diabetes mellitus; Z80.1 Family history of malignant neoplasm of trachea, bronchus and lung; Z80.0 Family history of malignant neoplasm of digestive organs; Z80.49 Family history of malignant neoplasm of other genital organs; Z82.3 Family history of stroke; Z80.3 Family history of malignant neoplasm of breast; Z88.5 Allergy status to narcotic agent; Z88.2 Allergy status to sulfonamides; Z87.19 Personal history of other diseases of the digestive system; Z86.16 Personal history of COVID-19; Z87.440 Personal history of urinary (tract) infections
CPT/HCPCS: 88304; 88307; 36415; 80048; 80053; 82962; 83036; 83735; 85025; 85027; 85610; 85730; 86803; 86850; 86900; 86901; 88341; 88342; 93005; 97162; 97530

== ENCOUNTER → 2024-03-23 10:29 | Outpatient (REF) | payer MEDICARE, OTHER, SELFPAY | LOC: HWWDC 10:29 | PROVIDERS: ATTENDING PHYSICIAN Internal Medicine | DX: Z12.31 Encounter for screening mammogram for malignant neoplasm of breast (principal) | CPT/HCPCS: 77063; 77067 ==

== ENCOUNTER → 2024-04-15 08:54 | Outpatient (REF) | payer MEDICARE, OTHER, SELFPAY | LOC: RAD 08:54 | PROVIDERS: ATTENDING PHYSICIAN Nurse Practitioner; REFERRING PHYSICIAN Surgery | DX: K21.9 Gastro-esophageal reflux disease without esophagitis (principal); R10.11 Right upper quadrant pain | CPT/HCPCS: 76700 ==

== ENCOUNTER → 2024-07-29 08:40 | Outpatient (REF) | payer MEDICARE, OTHER, SELFPAY | LOC: RAD 08:40 | PROVIDERS: ATTENDING PHYSICIAN Internal Medicine Gastroenterology; FAMILY PHYSICIAN Internal Medicine | DX: K21.9 Gastro-esophageal reflux disease without esophagitis (principal) | CPT/HCPCS: 74246 ==

== ENCOUNTER → 2024-08-19 06:26 | Day surgery (SDC) | payer MEDICARE, OTHER, SELFPAY | LOC: GI 06:26 | PROVIDERS: ATTENDING PHYSICIAN Internal Medicine Gastroenterology | DX: Z12.11 Encounter for screening for malignant neoplasm of colon (principal); Z98.0 Intestinal bypass and anastomosis status; K57.50 Diverticulosis of both small and large intestine without perforation or abscess without bleeding; K64.8 Other hemorrhoids; K31.89 Other diseases of stomach and duodenum; K22.9 Disease of esophagus, unspecified; D12.0 Benign neoplasm of cecum; K63.5 Polyp of colon; K29.50 Unspecified chronic gastritis without bleeding; K21.00 Gastro-esophageal reflux disease with esophagitis, without bleeding | CPT/HCPCS: 45380; 45381; 43239; 88305; 88312; 87220; 88342 ==

== ENCOUNTER → 2024-11-09 06:47 | Outpatient (REF) | payer MEDICARE, OTHER, SELFPAY | LOC: HWRAD 06:47 | PROVIDERS: ATTENDING PHYSICIAN Hospitalist | DX: R10.9 Unspecified abdominal pain (principal) | CPT/HCPCS: 76700 ==

== ENCOUNTER → 2025-07-21 13:54 | Outpatient (REF) | payer MEDICARE, OTHER, SELFPAY | LOC: HWRAD 13:54 | PROVIDERS: ATTENDING PHYSICIAN Internal Medicine Rheumatology; FAMILY PHYSICIAN Hospitalist | DX: Z12.31 Encounter for screening mammogram for malignant neoplasm of breast (principal); M81.0 Age-related osteoporosis without current pathological fracture | CPT/HCPCS: 77080 ==